=== PATIENT | female | born 1990 | race Caucasian/White ===

== ENCOUNTER 2017-03-06 08:00 | Inpatient (IN) ==
[2017-03-06] MEDS ORDERED: Ringers Solution, Lactated 1,000 ML ONE ×3 (08:20→09:28)
[2017-03-06] MEDS ORDERED: *HR* Phenylephrine 10 MG/ML VIAL ONE (08:28)
[2017-03-06] MEDS ORDERED: *HR* Morphine Sulfate/PF 5 MG/10 ML AMPUL ONE (08:30)
[2017-03-06] MEDS ORDERED: *HR* Oxytocin 10 UNIT/ML VIAL IM ONE (08:30)
--- NOTE | 2017-03-06 08:30 | OB/GYN History & Physical ---
Date of Encounter: 03/06/17 Time of Encounter: 08:25 Assessment and Plan (1) 37 weeks gestation of Current visit: Yes Status: Acute Receiving and compliant with PNC (2) Velamentous insertion of umbilical cord in third trimester Current visit: Yes Status: Acute Recommendation for primary c/s at 37 weeks for for prevention of umbilical cord avulsion, serial US for growth (3) Anemia affecting in third trimester Current visit: Yes Status: Acute On iron supplementation (4) Tubal ligation evaluation Current visit: Yes Status: Acute Consented for Tubal Ligation History of Present Illness Chief complaint: Primary C/S HPI: Ms. Middleton is a 26 year old female , EDC 03/25/17 at 37 weeks and 2 days who presents for a primary with tubal ligation for a diagnosis of undesired fertility and a velamentous insertion of the umbilical cord to the placenta which is high risk for evulsion. The patient had the velamentous insertion diagnosed on ultrasound and [facility] Dr. Ciro Fisher was consult. About follow-up. He reviewed images and was concerned that this is high risk for an evulsion due to the placement of the placenta. He recommended that she be offered a primary at 37 weeks to avoid avulsion during labor and delivery requiring emergency delivery and possible concern for at that time. The patient was given her options and she did agree to proceed with a primary and she was desiring a tubal ligation. Informed consent obtained. 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 She has one child is not affected. She was retested for cystic fibrosis with this and she was found to be negative. This was brought to the attention of Dr. Mccall at [facility] department. She reviewed this with her equipment maintenance engineer and discovered that the allele that was considered previously positive for cystic fibrosis with early testing is now considered a benign finding. The patient also had anemia during the and has been iron and iron supplementation. She has had appropriate growth on ultrasound. Her last ultrasound on 02/26 showing 5 lbs. 10 oz. fetus at the 24.5 percentile with an EFRAÍN of 11.7. She reports an active fetus and denies any loss of fluid or vaginal bleeding or contractions. Blood type A+, RI, , GBS neg. Past Med Surg Social Fam HX - Past Medical History Attestation: Yes The following information was validated with the patient. Source: patient, old records reviewed Medical history: migraine Psychiatric history: anxiety - Past Surgical History Surgical History: other (TNA, wisdom teeth, breast biopsy) - Social History Smoking Status: Former smoker Smokeless Tobacco Status: No Alcohol use: none Drug use: none Current living situation: Home Activity Level: Independent ambulation Obstetrical History - Pregnancies : 2 Para: 1 Term: 1 Livin Medications and Allergies Ferrous Sulfate [Iron] 1 tab PO DAILY 03/06/17 [History] Vit/Iron Fumarate/FA [ Tablet] 1 tab PO DAILY 03/06/17 [History ] Allergies Amoxicillin Allergy (Verified 03/06/17 08:39) Swelling of Lip/Tongue/Throat Penicillins [PCN] Allergy (Verified 03/06/17 08:39) Swelling of Lip/Tongue/Throat Review of System OB All systems PM: reviewed and no additional remarkable complaints except as stated - Constitutional Constitutional ROS IM: weight gain - Genitourinary Genitourinary: vaginal discharge - Menstruation Menstruation: amenorrhea Exam - Vital Signs Vital signs: Afebrile, vital signs stable. heart tones 120s baseline, CAT 1 - Constitutional Constitutional: well developed, well nourished, no acute distress, average body habitus - HEENT HEENT: Normocephaly, Mucus Membranes Moist - Neck Neck exam: normal inspection, supple - Lungs Respiratory exam: CTAB - Cardiovascular Cardiovascular exam: RRR - Abdomen Abdomen: Present: bowel sounds normal, gravid, non tender - Extremities Extremities exam: normal inspection, warm Deep Tendon Reflex Grade: 2+ Normal - Vulva Vulva: bilateral: normal - Vagina Vagina: Present: normal moisture - Cervix Dilation: 1 Effacement: 0 Station: -2 - Anus/Rectum Anus/Rectum: Present: normal perianal skin Results All other labs normal. - VTE Documentation of Mechanical Device: Intermittent pneumatic compression device
[2017-03-06] MEDS ORDERED: *HR* FentaNYL (PF) 100 MCG/2 ML VIAL ONE (08:31)
[2017-03-06] MEDS ORDERED: EPHEDrine 50 MG/ML VIAL ONE (08:31)
--- NOTE | 2017-03-06 08:41 | Anesthesia Evaluation PreOp ---
Date of Encounter: 03/06/17 Time of Encounter: 08:29 - Past History Planned Operation: 37wk d/t recommendations Cardiac History: Denies any Significant Hx Pulmonary History: Denies Any Significant HX LEAD RECOVERER History: Denies Any Significant HX Other Medical History: Denies Any Significant HX Anesthesia History: No Prior Anesthetic Complications, Past Anesthesia ( previous vaginal del with epidural, presents today d/t short cord and high placenta implantation according to high speed operator physician recommendation for early 37wk.) Alcohol Use: none Drug use: none Medications and Allergies Loratadine [Claritin] 1 tab PO DAILY #30 tablet 05/01/16 [Rx] Allergies Amoxicillin Allergy (Verified 02/07/16 14:02) Swelling of Lip/Tongue/Throat Penicillins [PCN] Allergy (Verified 02/07/16 14:02) Swelling of Lip/Tongue/Throat Anesthesia Exam - HEENT Pupil (Motor): Pupils equal Mallampati: II Teeth: Normal Oral Opening: Greater than 3 - LEAD RECOVERER LOC: Oriented LEAD RECOVERER Motor: Normal RUE, Normal LUE, Normal RLE, Normal LLE, Normal Face LEAD RECOVERER Sensory: Normal: RUE, LUE, RLE, LLE, Face - Cardiac Rhythm: Regular Murmur: None - Pulmonary Breath Sounds: bilateral Clear Respiratory Effort: Symmetrical Anesthesia Assess/Plan ASA Score: 2 Modified [place] Scale for Level of Consciousness: Cooperative, oriented, and tranquil Anesthetic Plan: General, Regional Monitoring Plan: Standard Monitors Recovery Plan: PACU
[2017-03-06] MEDS ORDERED: *HR* HYDROmorphone (PF) 1 MG/ML SYRINGE IVP PRN ×2 (08:42→08:58)
[2017-03-06] MEDS ORDERED: *HR* Promethazine 25 MG/ML VIAL IVP PRN (08:42)
[2017-03-06] MEDS ORDERED: Ondansetron 4 MG/2 ML VIAL IVP ONE (08:42)
[2017-03-06] MEDS ORDERED: Oxytocin 20 units/ LR 1000 mL 20 UNIT/1,000 ML BAG IVC SCH ×2 (08:45→14:41)
[2017-03-06] MEDS ORDERED: Famotidine 20 MG/2 ML VIAL IVP ONE (08:45)
[2017-03-06] MEDS ORDERED: Ringers Solution, Lactated 1,000 ML IVC ONE (08:45)
[2017-03-06] MEDS ORDERED: Metoclopramide 10 MG/2 ML VIAL IVP ONE (08:45)
[2017-03-06] MEDS ORDERED: cefOXitin 2,000 MG in D5% in Water (Mini-Bag+) 100 ML IVPB ONE (08:53)
[2017-03-06] MEDS ORDERED: Ibuprofen 400 MG TABLET PO PRN (08:58)
[2017-03-06] MEDS ORDERED: Ondansetron 4 MG/2 ML VIAL IVP PRN ×2 (08:58→14:41)
[2017-03-06] MEDS ORDERED: Naloxone 0.4 MG/ML INJ IVP PRN (08:58)
[2017-03-06] MEDS ORDERED: *HR* Morphine 2 MG/ML SYRINGE IVP PRN (08:58)
[2017-03-06] MEDS ORDERED: *HR* OxyCODONE/APAP 5/325 TABLET PO PRN (08:58)
[2017-03-06 08:59] LABS: Basophils % 0.3 %; Eosinophils # 0.1 K/mcL (0.0-0.6); Eosinophils % 0.5 %; Hemoglobin 11.5 g/dL (11.5-15.4); Immature Granulocytes % 0.5 % (0-4); Lymphocytes % 15.9 %; Mean Corpuscular HGB Conc 34.8 g/dL (31.6-35.5); Mean Corpuscular Hemoglobin 30.9 pg (28.0-33.3); Mean Corpuscular Volume 88.7 fL (83.0-100.0); Mean Platelet Volume 11.6 fL (9.4-12.4); Monocytes # 0.7 K/mcL (0.0-1.3); Monocytes % 5.2 %; Neutrophils # 9.9 K/mcL (1.6-8.9); Platelet Count 200 K/mcL (140-400); Red Blood Count 3.72 M/mcL (3.82-4.97); Red Cell Distribution Width 12.2 % (11.5-14.5); Segmented Neutrophils % 77.6 %
[2017-03-06] MEDS ORDERED: CefOXitin 2,000 MG VIAL IVPB ONE (09:24)
[2017-03-06] MEDS ORDERED: Acetaminophen IV 1,000 MG/100 ML INFUS..BTL IVPB ONE ×2 (09:33→12:30)
[2017-03-06] MEDS ORDERED: Oxytocin 20 units/ LR 1000 mL 20 UNIT/1,000 ML BAG IVC ONE (10:44)
--- NOTE | 2017-03-06 11:16 | OB/GYN Procedure Note ---
Section - Date of procedure: 03/06/17 Preop diagnosis: desires sterilization, other (Desires primary section , velamentous insertion of umbilical cord with vascular engorgement at insertion site) Post-op diagnosis: same Procedure: section, primary low transverse, bilateral tubal ligation Surgeon: Narda Agosto Estimated blood loss (cc): 500 Anesthesiologist: Bindu Cat [employer] Department Chair: Arthur Tarango Anesthesia Type: Spinal section complications: none Disposition: L&D Recovery Room Specimens: Placenta, Right tube segment, Left tube segment - Infant (s) Infant A Infant Delivery Date: 03/06/17 Infant Delivery Time: 10:16 Presentation: vertex Position: SWATHI Route of delivery: other ( section) Gender: Female Viability: Viable Pounds: 6 Ounces: 4 at 1 minute: 8 at 5 minutes: 9 Placenta: spontaneous Cord: 3 umbilical vessels - Narrative Narrative: The patient was taken to the operating room and spinal anesthesia was given and tested to be adequate for abdominal and pelvic surgery. She was prepped and draped in the usual sterile fashion. Timeout was completed. A Pfannenstiel skin incision was made and sharply dissected down to the fascia. The fascia was incised in the midline and extended bilaterally. 2 straight Magdalena clamps were placed on the inferior fascial edge and the fascia was bluntly and sharply dissected away from the rectus muscles. This was repeated superiorly. The rectus muscles were bluntly dissected. Peritoneum was bluntly entered and then extended superiorly and inferiorly confirming there were no anterior adhesions. The Bladder blade was placed to protect the bladder. Vesicouterine peritoneum was incised and reflected inferiorly and the bladder blade was replaced to protect the bladder. A low transverse incision was then made through the lower uterine segment down to the amnion. This was bluntly extended bilaterally and then extended another centimeter on each side with bandage scissors in a U fashion. The amnion was bluntly entered. This was followed by the vertex delivery of a viable and vigorous female weighing 6#4oz with Apgars of 8/ 9. was placed on the maternal abdomen. The cord was clamped and cut after a delay. Infant was handed to the nursery care team. The placenta was delivered spontaneous and intact then the uterine cavity was digitally palpated and wiped clean with a moist lap sponge. There were no placental remnants identified. Clamps were placed on the uterine angles and the uterine incision was closed using 0 Vicryl suture in a running, locking fashion. A second imbricating layer completed the uterine closure with 0 Vicryl suture. Good hemostasis achieved after a third layer of 0 Vicryl was placed and several [id number] sutures were used . Attention was then placed on the fallopian tubes. The tubes and ovaries appeared grossly normal bilaterally. The left fallopian tube was grasped with a [place] clamp and O-Plain suture was used to doubly ligate a loop of tube. The loop of tube was then excised and sent to pathology. Good hemostasis is noted at the tubal lumens. This was repeated for the patient's right side. Again good hemostasis noted at the tubal lumens. The uterus was then examined and noted to be hemostatic. The pelvis was then irrigated with a copious amount of sterile water. And again good hemostasis was identified. The peritoneal edges and rectus muscles were then examined and found to be hemostatic. The fascia was then closed using 0 PDS loop in a running nonlocking fashion. Subcutaneous tissue was irrigated with sterile water, good hemostasis was achieved. The skin was then closed using and 4-0 Monocryl in a running subcuticular fashion. The incision was then reinforced with benzoin and Steri-Strips. Good hemostasis was noted. Estimated blood loss was 500cc. The Ibarra was noted to be draining clear yellow urine at the end of the procedure. All sponge and instrument counts are correct at the end of the procedure. The patient was taken to the recovery room in stable condition.]
--- NOTE | 2017-03-06 13:21 | Anesthesia Evaluation Post Op ---
Date of Encounter: 03/06/17 Time of Encounter: 13:11 - Vital Signs Vital Signs: vss - Lungs Lungs: Clear Ascult./Percussion - Airway Airway: Non-obstructed - Cardiovascular Baseline Rhythm - Mental Status Mental Status: Alert & Oriented, Answers Appropriately - Pain Pain Scale used: Carmen (Faces) - Nausea Vomiting Nausea Vomiting: Not Present - Hydration Hydration: Ibarra catheter - Discharge PostOp Status: Transfer Patient to floor
[2017-03-06] MEDS ORDERED: Simethicone 80 MG TAB.CHEW PO PRN (14:41)
[2017-03-06] MEDS ORDERED: Sennosides 8.6 MG TABLET PO PRN (14:41)
[2017-03-06] MEDS ORDERED: Metoclopramide 10 MG/2 ML VIAL IVP PRN (14:41)
[2017-03-07] MEDS: Ibuprofen 600 MG TABLET PO PRN ×3 (00:26→18:20)
[2017-03-07 06:33] LABS: Basophils % 0.2 %; Eosinophils # 0.1 K/mcL (0.0-0.6); Eosinophils % 0.9 %; Hematocrit 30.6 % (35.3-44.9); Hemoglobin 10.8 g/dL (11.5-15.4); Immature Granulocytes % 0.4 % (0-4); Lymphocytes # 1.9 K/mcL (0.6-4.6); Lymphocytes % 15.1 %; Mean Corpuscular HGB Conc 35.3 g/dL (31.6-35.5); Mean Corpuscular Hemoglobin 31.2 pg (28.0-33.3); Mean Corpuscular Volume 88.4 fL (83.0-100.0); Mean Platelet Volume 10.9 fL (9.4-12.4); Monocytes # 0.7 K/mcL (0.0-1.3); Monocytes % 5.3 %; Neutrophils # 9.7 K/mcL (1.6-8.9); Platelet Count 181 K/mcL (140-400); Red Blood Count 3.46 M/mcL (3.82-4.97); Red Cell Distribution Width 12.2 % (11.5-14.5); Segmented Neutrophils % 78.1 %
--- NOTE | 2017-03-07 07:50 | OB/GYN Progress Note ---
Date of Encounter: 03/07/17 Time of Encounter: 07:47 - Assessment and Plan (1) delivery delivered Current Visit: Yes Status: Acute Meeting POD 1 milestones. Stable C/S recovery. Continue current management. Will change diet to regular. (2) Anemia, Current Visit: Yes Status: Acute Continue iron. Subjective - Subjective Interval history: Pt resting in bed at this time. States pain well managed by po pain. Ibarra just removed has yet to void. No flatus, but patient states feels gas "rumbling" and denies nausea, tolerating diet. Patient reports: appetite normal, pain well controlled, ambulating normally : doing well Objective - Vital Signs Latest vital signs: Vital Signs Temp Pulse Resp BP Pulse Ox 03/07/17 05:11 98.2 F 67 16 103/57 97 03/07/17 00:16 98.2 F 70 16 96/61 95 03/06/17 20:34 98.1 F 81 16 112/77 96 03/06/17 16:30 98.0 F 66 18 111/72 03/06/17 15:36 97.6 F 80 18 101/62 03/06/17 14:45 97.5 F L 70 18 109/72 03/06/17 14:09 97.5 F L 77 18 107/70 97 03/06/17 13:30 97.5 F L 67 19 107/70 96 Intake and Output 03/06/17 03/06/17 03/07/17 15:59 23:59 07:59 Intake Total 0 / 0 100 / 100 Output Total 600 / 600 350 / 350 1250 / 1250 Balance -600 / -600 -350 / -350 -1150 / -1150 Intake: Oral 0 / 0 100 / 100 Output: Catheter 600 / 600 350 / 350 1250 / 1250 Other: Weight 75.5 kg 72.8 kg Patient Weight 03/07/17 23:59 Weight 72.8 kg - Exam Lungs: bilateral: normal Chest: Normal S1, Normal S2 Extremities: Present: normal Abdomen: Present: normal appearance, soft Incision: Present: dressed Uterus: Present: normal - Labs Labs: Laboratory Results - last 24 hr 03/06/17 03/07/17 08:17 06:17 WBC 12.8 H 12.5 H RBC 3.72 L 3.46 L Hgb 11.5 10.8 L Hct 33.0 L 30.6 L MCV 88.7 88.4 MCH 30.9 31.2 MCHC 34.8 35.3 RDW 12.2 12.2 Plt Count 200 181 MPV 11.6 10.9 Immature Gran % 0.5 0.4 Seg Neutrophils % 77.6 78.1 Lymphocytes % 15.9 15.1 Monocytes % 5.2 5.3 Eosinophils % 0.5 0.9 Basophils % 0.3 0.2 Neutrophils # 9.9 H 9.7 H Lymphocytes # 2.0 1.9 Monocytes # 0.7 0.7 Eosinophils # 0.1 0.1 Basophils # 0.0 0.0
[2017-03-07] MEDS: Prenatal Vit/FA 1 EACH TABLET PO SCH (08:00)
[2017-03-07] MEDS: *HR* OxyCODONE/APAP 5/325 TABLET PO PRN ×3 (12:02→22:17)
[2017-03-08] MEDS: *HR* OxyCODONE/APAP 5/325 TABLET PO PRN (05:50)
--- NOTE | 2017-03-08 07:18 | Discharge Summary ---
Date of Encounter: 03/08/17 Time of Encounter: 07:16 - Discharge Diagnosis (1) delivery delivered Priority: Primary Status: Acute Comments: Patient doing well postop day 2. Pain is well controlled with pain medication She is passing flatus She is bottle feeding She would like to be discharged today (2) Anemia, Priority: Secondary Status: Acute Comments: Patient denies shortness of breath, heart palpatations, and fatigue. She will continue her Ferrous Sulfate 325mg PO daily - Discharge Medications Prescriptions: OxyCODONE/APAP 5/325 [Percocet 5/325 MG] 1 each PO Q4HR PRN #30 tablet PRN Reason: Moderate pain 4-6 Ibuprofen [Motrin] 600 mg PO Q6HR PRN #30 tablet PRN Reason: Cramping Docusate [Colace] 100 mg PO BID #14 capsule Home Medications: Docusate [Colace] 100 mg PO BID #14 capsule 03/08/17 [Rx] Ferrous Sulfate 325 mg PO DAILY tablet 03/08/17 [Rx] Ibuprofen [Motrin] 600 mg PO Q6HR PRN #30 tablet 03/08/17 [Rx] OxyCODONE/APAP 5/325 [Percocet 5/325 MG] 1 each PO Q4HR PRN #30 tablet 03/08/17 [Rx] Vit/FA 1 each PO DAILY tablet 03/08/17 [Rx] Allergies/Adverse Reactions: Allergies Amoxicillin Allergy (Verified 03/06/17 08:39) Swelling of Lip/Tongue/Throat Penicillins [PCN] Allergy (Verified 03/06/17 08:39) Swelling of Lip/Tongue/Throat Data Procedures and tests throughout hospitalization: Laboratory Tests 03/06/17 03/07/17 08:17 06:17 WBC 12.8 H 12.5 H RBC 3.72 L 3.46 L Hgb 11.5 10.8 L Hct 33.0 L 30.6 L MCV 88.7 88.4 MCH 30.9 31.2 MCHC 34.8 35.3 RDW 12.2 12.2 Plt Count 200 181 MPV 11.6 10.9 Immature Gran % 0.5 0.4 Seg Neutrophils % 77.6 78.1 Lymphocytes % 15.9 15.1 Monocytes % 5.2 5.3 Eosinophils % 0.5 0.9 Basophils % 0.3 0.2 Neutrophils # 9.9 H 9.7 H Lymphocytes # 2.0 1.9 Monocytes # 0.7 0.7 Eosinophils # 0.1 0.1 Basophils # 0.0 0.0 Date of admission: 03/06/17 08:00 Primary care physician: PCP HARLAN Discharging clinician: Tasha Samuel Anticipated date of discharge: 03/08/17 - Patient Status Disposition: Home, Self-Care Condition: Good Functional capacity at discharge: independent ambulation - Discharge Instructions Follow Up With: HARLAN,PCP [Primary Care Provider] - Narda Agosto MD [Partnered Physician] - - Diet and Activity Activity: increase activity as tolerated Diet: regular diet Hospital Course Reason for admission: section Delivery: section Episiotomy: none Laceration: none Other procedures: tubal ligation complications: none Discharge diagnosis: IUP at term delivered baby: female Time Attestation: Total time spent providing and/or coordinating discharge services: - VTE Documentation of Mechanical Device: Intermittent pneumatic compression device Exam - Constitutional Vitals: Temp Pulse Resp BP Pulse Ox 98.3 F 80 16 94/57 96 03/07/17 20:00 03/07/17 20:00 03/07/17 20:00 03/07/17 20:00 03/07/17 20:00 General appearance IM: cooperative, A&O X 3, pleasant - Respiratory Respiratory exam: Present: CTAB - Cardiovascular Cardiovascular exam IM: Present: RRR, +S1, +S2 - GI/Abdominal GI/Abdominal exam IM: normal bowel sounds, soft Incision: normal, dry, intact (Observed Steri strips in place under dressing clean dry and intact) - Rectal Rectal exam: deferred - Uterine Tone: Firm Uterus Position: 2 Fingers Below Umbilicus, Midline - Extremities Exam Extremities exam IM: Present: normal capillary refill, normal inspection, radial pulses palpable and symetrical - Neurological Exam Neurological exam: alert, oriented X3, reflexes normal
[2017-03-08] MEDS: Prenatal Vit/FA 1 EACH TABLET PO SCH (08:29)
[2017-03-08 09:30] VITALS: BP 102/70
[2017-03-08] MEDS: Ibuprofen 600 MG TABLET PO PRN (09:43)
== END 2017-03-08 10:50 | disposition home or self-care (01) | DRG 540 ==
LOC: 1NENULAB 08:00 → 1NENUOBS 13:41
PROVIDERS: ADMIT Obstetrics & Gynecology; ATTEND Obstetrics & Gynecology